=== PATIENT | male | born 1970 ===

== ENCOUNTER 2020-03-09 04:09 | Emergency (ER) | payer SELFPAY ==
[2020-03-09] MEDS ORDERED: Lidocaine 1% (PF) 30 ML VIAL ONE (04:43)
[2020-03-09 05:35] LABS: #Basophils 0.1 thou/uL (0.0-0.2); #Eosinphils 0.2 thou/uL (0.0-0.7); #Lymphocytes 2.3 thou/uL (1.20-3.40); #Monocytes 0.5 thou/uL (0.11-0.59); #Neutrophils 4.9 thou/uL (1.40-6.50); %Basophils 0.9 % (0.0-1.0); %Monocytes 6.7 % (0.0-10.0); %Neutrophils 61.4 % (42.0-75.0); Hemoglobin 14.8 g/dL (14.0-18.0); Mean Corpuscular HGB CONC 32.3 g/dL (32.0-36.0); Mean Corpuscular Hemoglobin 29.5 pg (27.0-31.0); Mean Corpuscular Volume 91.2 fL (78.0-98.0); Mean Platelet Volume 7.2 fL (7.4-10.4); Platelet Count 257 thou/uL (130-400); RBC Distribution Width 10.9 % (11.5-14.5); Red Blood Cell (RBC) Count 5.02 mill/uL (4.70-6.10); White Blood Cell (WBC) Count 7.9 thou/uL (4.8-10.8)
[2020-03-09 05:49] LABS: Acetaminophen Less than 6.0 mcg/mL (10.0-30.0); Alcohol 214 mg/dL (Less than 10); CK (CPK) 379 U/L (30-200); Salicylate Less than 8.0 mg/dL (15.0-30.0)
[2020-03-09 05:51] LABS: ALT (SGPT) 26 U/L (8-55); AST (SGOT) 24 U/L (5-34); Albumin 4.1 g/dL (3.5-5.0); Alkaline Phosphatase 80 U/L (40-110); Anion Gap 15 mmol/L (10-20); BUN (Urea Nitrogen) 13 mg/dL (8.4-25.7); Calc. Creatinine Clearance 0 mL/min (70-130); Carbon Dioxide 24 mmol/L (22-29); Chloride 103 mmol/L (98-107); Estimated GFR-MDRD Greater than 90; Glucose 139 mg/dL (70-105); Potassium 3.8 mmol/L (3.5-5.1); Protein, Total 7.1 g/dL (6.0-8.3); Sodium 138 mmol/L (136-145)
[2020-03-09] MEDS ORDERED: Boostrix 0.5 ML VIAL ONE (06:12)
== END 2020-03-09 06:48 | disposition short-term general hospital (02) ==
LOC: NAV ERS 04:09
DX: S51.812A Laceration without foreign body of left forearm, initial encounter (principal); F10.129 Alcohol abuse with intoxication, unspecified; Z23 Encounter for immunization; X99.1XXA Assault by knife, initial encounter
CPT/HCPCS: 80053; 80307; 82550; 85025; 90471; 90715; J2001